=== PATIENT | female | born 1945 | race Caucasian/White ===

== ENCOUNTER 2019-11-06 11:10 | Outpatient (CLI) | payer MEDICARE, MEDICAID ==
--- NOTE | 2019-11-06 13:26 | CONSULTATION NOTE ---
Palliative Care Consultation - Referral Referring Provider: Cristiano ROBLES Time of Visit: [id number] [address]erral setting: [facility] [place] Referral Reason: Breast Cancer - Information Sources Records reviewed: Previous records reviewed History/Review of Systems obtained from: Patient, Family (daughter Ebonie) Exam limitations: No limitations - History of Present Illness Brief History of Present Illness: This is a 74-year-old woman who appears very fragile, and presents with a breast lump in her left breast. It does appear non-fixed, in the breast tissue, her breasts are quite small. It appears about the size of a walnut, is very tender to palpation, has broken through the skin, with roughened area through partially areola as well as small reddened nodules breaking through skin. No obvious lymphadenopathy noted today's visit. At this point in time it is not draining, though she has removed crusting during bathing. She reports intermittent sharp shooting, electrical actually in both breasts. More tenderness with movement and pressure. She reports this is been slowly worsening over the last several weeks to months, and now is more alarmed with it breaking through the skin. Patient reports an abnormal mammogram at [facility] about 4 years ago, presumed it was breast cancer, and has been working with diet to treat. Patient is vegetarian, appears frail in nature, has used supplements intermittently, but has been limited because of financial stressors. Her daughter was finally able to talk her into seeing Cristiano ROBLES for the first time, and she agreed to referral to Palliative Care for goals of care. Patient's history is complex in the context she has multiple allergies and chemical sensitivities. These appear mostly environmental, with exposure to detergents, scents, and reports she is lived in places that have not been healthy with black mold, off gassing, and exposure to toxins. These usually manifests in rashes, bronchial tightening, throat tightening, face flushing and fatigue. Patient's experience as far as previously, she did have a hysterectomy at 32 for bleeding and clotting, her ovaries are intact. She reports she has had a biopsy in the past where they removed a wedge "and put it back". This was quite painful and has left significant fear for future biopsies. We did discuss in the context currently she could have a needle biopsy and things were much better now than 30 years ago. She has avoided most medical care, though has had a gangrenous appendix removed in her 30s. She also describes a hospitalization for an allergic reaction that included lower extremity edema, rash, and swelling. She had self treated and ended up with metabolic issues that were life- threatening. Otherwise she has no other significant medical history and has avoided doctors. In meeting with patient and daughter, their goal is to understand better about moving forward and what that might entail. Patient very much has things to "live for", her goal would be to follow through with treatment, in fact she is asking about bilateral mastectomy. She is willing to hear what her options would be for treatment, with the goal to prolong quantity and improve quality of life. These will be made within the context of her healthcare beliefs, but she is willing to move forward with testing and staging. A cursory overview of this was given of what might be involved and the need for urgent referral to surgery and oncology was agreed upon. Medical/Surgical History - Past Medical History Respiratory: reports: Shortness of breath THROUGH OPERATOR: reports: Breast cancer (presumed presenting with mass) HEENT: reports: Chronic vision loss (this has been more acute in last few weeks) Psych: reports: Anxiety Musculoskeletal: reports: Fatigue Derm: reports: Other (reactions to multiple agents/detergents currently with rash LE) MRSA Hx?: No - Past Surgical History General: reports: Appendectomy (gangreous in 1950) /THROUGH OPERATOR: reports: Hysterectomy HEENT: reports: Tonsil/Adenoidectomy - Substance History Use: Uses substance without health or social issues: NONE Social History - Living Situation Living arrangement: At home Living Situation: Alone Support System: Patient describes a fairly isolated life, with financial stressors. Her daughter provides her transportation and support, she does defer to her quite frequently. [place] and she does have a granddaughter in [place] who is doing her shopping for her. She does have another daughter in [place], though they are currently estranged. Family History - Family History Family History: Mother: (Father at age 79, mother at 83), Father: , Sister: Alive and Well, Brother: Alive and Well, Other family: Alive and Well, Cancer Family History Comment/Other: Patient's daughter age 52, he did have a mammogram for curative intent last year. She does have a grandmother who of stomach cancer in her 50s, on paternal side. And a maternal grandmother had cancer in her 90s and . Her other daughter Ebonie who is with her, has had frequent biopsies but no positive for cancer at this time. She reports she is due for follow-up. Would recommend genetic counseling as part of patient's work-up. Medications/Allergies - Medications Home Medications: Ambulatory Orders Medication Instructions Recorded Confirmed Triamcinolone 0.5% Cream [Kenalog 1 applic TOP BID PRN 11/06/19 11/06/19 0.5% Cream] - Allergies Allergies/Adverse Reactions: Allergies Allergy/AdvReac Type Severity Reaction Status Date / Time Penicillins Allergy Rash Verified 11/06/19 13:46 chemical sensitivities AdvReac Rash Uncoded 11/06/19 13:46 Review of Systems - Constitutional Constitutional: reports: Fatigue (fluctuates; worsening lately), Weight stable. denies: Fever, Chills - Eyes Eyes: reports: Vision loss (worsening) - Cardiovascular Cardiovascular: reports: Exertional dyspnea, Decr. exercise tolerance. denies: Chest pain - Respiratory Respiratory: reports: SOB with exertion. denies: SOB at rest - Gastrointestinal Gastrointestinal: reports: Good appetite - Musculoskeletal Musculoskeletal: reports: Muscle weakness - Integumentary Integumentary: reports: Rash (recent with bathing; noted on calves), Dryness, Nail changes (thinned and brittle noted), Hair changes (has hair shaved close to minimize need for products/hair care) - Neurological Neurological: reports: General weakness - Psychiatric Psychiatric: reports: Anxiety - Hematologic/Lymphatic Hematologic/Lymphatic: denies: Recurrent infections - All Other Systems All Other Systems: reports: Reviewed and negative Physical Exam - Vital Signs Temperature: 36.9 C Pulse Rate: 76 Respiratory Rate: 18 O2 Saturation: 99 (ra @ rest) Blood Pressure: 125/75 - Physical Exam General Appearance: positive: Alert, Mild distress, Anxious Eyes Bilateral: positive: Other (pale conjuctivaie) ENT: positive: No signs of dehydration Neck: positive: Trachea midline Cardiovascular: positive: Regular rate & rhythm Respiratory: positive: No respiratory distress, Diminished in bases. negative: Wheezes, Rales, Rhonchi Abdomen: positive: Soft, Other (mild rounded distension) Skin: positive: Pallor, Rash (dry raised on shins; no pustules or erythema) Extremities: positive: No pedal edema Neurologic/Psychiatric: positive: Oriented x3, Mood/affect nml, Flat affect Palliative Care - POLST Patient has POLST: No Pain: Pain worsening, Location (left breast; fluctuates in intensity; does not want medication) Tiredness/Fatigue: Moderate (4-6) Drowsiness/Sedation: Mild (1-3) Nausea: None Anorexia: Mild (1-3) Dyspnea: Mild (1-3) Depression: Mild (1-3) Anxiety: Moderate (4-6) Feelings of wellbeing/Perceived Quality of Life: Fair, Acceptable Sleep: Sleeps well Constipation: No Performance Status: Patient admits to deconditioning, has had more fatigue and is more tired. Is able to manage her own ADLs, patient does not drive. - Palliative Care Discussion: Patient's understanding of her illness, currently she does believe she has breast cancer and I would concur. She has not sought treatment up to this point, as she has managed it on her own. She did recognize when it broke through the skin, this was no longer working and she needed to seek help. She is anxious about the spread, but this might look like as far as the future, and very much wants to live. This was in about choosing no treatment and focusing on comfort only. Her daughter is hopeful she has more time as well, and very supportive of patient choices, but encouraging her to move forward. Patient does present with palpable mass now eroding through the skin, has had worsening fatigue, some right upper quadrant tenderness, some firmness in her abdomen as well as some vision changes more acutely and changes in her health. We did discuss if her goals were to pursue treatment, surgery was acceptable, in fact she was talking about a bilateral mastectomy. This actually might be appropriate given her daughter also has a diagnosis of breast cancer. I did encourage for genetic testing, for Ebonie we did be helpful for her to know also. Patient is fearful and rightfully so of her chemical sensitivities, and interaction and pending tests coming. But she is willing to go through what she needs to recognizing this may be difficult for her. She very much does so have things to live for, and is hopeful this will end in a good outcome. Patient does have multiple financial stressors, [place], they are seeking appropriate housing for her both for her health issues and within her financial constraints We did discuss though advanced care planning, given patient's previous issues with reactions, and sensitivities would recommend she solidify durable power of health contracts attorney. She would want Ebonie her daughter [phone] to be her primary D POA. Form was given with instructions how to fill out. She also is quite clear she most likely would not want resuscitation, I did introduce the POLST form, as well as 5 wishes for communicating what would be most important to her and the case something were to occur. We agreed to revisit these issues after treatment plan in place and we had more information. Impression and Recommendations - Palliative Care Impression: This is a 74-year-old woman who presents most likely clinically with breast cancer with left breast mass. She does appear quite frail, has had little intervention from [facility], but is wanting to pursue treatment for this with goal for quantity as well as quality of life. Patient does present with high anxiety, quite pale, and frail. Palliative care to provide support for symptom management, coordination of care, and anticipatory guidance. Recommendations/Counseling Done: 1. Left breast tumor. Patient has had progressive growth, including now into the skin of left tumor mass. Is causing some discomfort, patient now willing to consider treatment options and is concerned about quantity and quality of life. Counseling provided regarding the continuum of care, surgery, staging, and options depending on outcome of this, including radiation/chemo/hormonal treatment. Discussed her concern regarding "spread", this would include needing to participate in scans, labs, most likely follow-up mammogram of other breast. Discussed will defer to surgeon and oncology, she is willing to meet with both, urgent referrals made. 2. Acute pain. Patient currently without discomfort, did offer to order some "rescue medication" if it got too bad, patient currently feels like it is manage able and declined any prescriptions. 3. Chemical sensitivities. This is been long-term challenging for patient, she currently has a rash from recent bathing. She has used steroid cream in the past, did order triamcinolone for flares and is covered by insurance. Prescription sent to [facility] in [place]. 4. Anxiety. Counseling provided to normalize her fears and concerns, she does have her daughter support, and feels like she can move forward with this. Reassured her of team support, and will continue to include both her and her daughter in their decisions and options. 5. Frailty. Did recommend patient consider improving protein intake, patient does do quite a bit of fasting. She is also been vegetarian. She would be willing to change diet to improve her underlying nutritional status. Counseling provided regarding this is something she can do right now, to focus on building herself up, particularly with pending surgery and treatment. Verbalized understanding. At some point would recommend dietary consult with [facility] dietitian. 6. Advanced care planning. Counseling provided regarding advanced care planning documents, defining goals of care, role of palliative care and support. Will see patient in 2 weeks after consults completed. Time Spent: 65 minutes with greater than 50% of this done in counseling regarding breast cancer, disease trajectory, treatment continue advanced care planning and anticipatory guidance. As well as coordination of care and urgent referrals to both surgery and oncology.
== END 2019-11-06 11:11 | disposition home or self-care (01) ==
LOC: PC 11:10
PROVIDERS: ATTEND Nurse Practitioner Adult Health
DX: Z51.5 Encounter for palliative care (principal); N63.20 Unspecified lump in the left breast, unspecified quadrant; N64.4 Mastodynia; F41.9 Anxiety disorder, unspecified; R54 Age-related physical debility; T50.915D Adverse effect of multiple unspecified drugs, medicaments and biological substances, subsequent encounter; Z78.9 Other specified health status
CPT/HCPCS: 99205

== ENCOUNTER 2019-12-09 12:46 | Outpatient (CLI) | payer MEDICARE, MEDICAID ==
[2019-12-09] MEDS ORDERED: GADOBUTROL 7.5 MMOL/7.5 ML VIAL ONE (13:10)
[2019-12-09] MEDS ORDERED: GADOBUTROL 7.5 MMOL/7.5 ML VIAL IVP ONE (15:40)
--- NOTE | 2019-12-14 12:27 | MRI Report ---
BREAST MRI OF BOTH BREASTS: 12/10/2019 CLINICAL: Left breast protruding mass. PROCEDURE: MR BREAST BILATERAL WITH CAD INDICATIONS: Left Breast Cancer TECHNIQUE: The patient was placed prone in a dedicated breast imaging coil. Precontrast axial STIR and 3D FLASH without fat saturation sequences were obtained. Both before and after bolus injection of contrast, sequential 1-minute axial 3D FLASH with fat saturation sequences for 3 time points, with subtraction images and maximum intensity projections (MIPs) generated. Delayed sagittal FLASH images with fat s aturation were also obtained. Computer-aided detection, including computer algorithm analysis of MRI image data for lesion detectio n and characterization, pharmacokinetic analysis, with further physician review for interpretation, w as performed. COMPARISON: [facility], MR, MR BREAST BILATERAL WITH CAD, 06/26/2019, 15:57. FINDINGS: Image quality: Excellent. There is moderate background parenchymal enhancement. Right breast: A 4 x 5 mm focus of enhancement is present within the right breast at 11:00 at the midd le depth (series 505/58 and series 701/66). This lesion demonstrates T2 hyperintensity. No other susp icious enhancement or mass lesions in the right breast. Left breast: There is a lobulated avidly enhancing mass within the upper-outer quadrant of the left b reast which measures 3.8 x 2.5 x 2.8 cm. Architectural distortion is present within this mass. This m ass extends to the skin surface. Miscellaneous: No axillary adenopathy. No intramammary adenopathy. Limited visualization of the heart , lungs, mediastinum, and upper abdomen are grossly unremarkable. IMPRESSION: KNOWN BIOPSY PROVEN MALIGNANCY 1. 4 x 5 mm focus of enhancement in the right breast which demonstrates T2 hyperintensity. Findings s uggest a small fibroadenoma. Second look ultrasound is recommended to further characterize this findi ng. 2. Avidly enhancing lobulated mass in the left breast with skin involvement and architectural distort ion consistent with the biopsy-proven neoplasm. 3. No findings to suggest multifocal or multicentric disease. Electronically Signed By: Justyna garcia/:12/10/2019 21:38:27 ACR BI-RADS Category 6: Known biopsy proven malignancy 3346F BI-RADS CATEGORY: (6) - 6 Unspecified - other recall n/a LATERALITY: (B)
== END 2019-12-09 12:47 | disposition home or self-care (01) ==
LOC: DI 12:46
PROVIDERS: ATTEND Surgery
DX: C50.112 Malignant neoplasm of central portion of left female breast (principal)
CPT/HCPCS: 77049; A9585

== ENCOUNTER 2020-01-11 08:28 | Day surgery (SDC) | payer MEDICARE, MEDICAID ==
[2020-01-11] MEDS ORDERED: PHENYLEPHRINE 10 MG/ML VIAL IV ONE (08:29)
[2020-01-11] MEDS ORDERED: ROCURONIUM 50 MG/5 ML VIAL IVP ONE (08:29)
[2020-01-11] MEDS ORDERED: ACETAMINOPHEN 1,000 MG/100 ML 100 ML IV ONE (08:29)
[2020-01-11] MEDS ORDERED: PROPOFOL 200 MG/20 ML VIAL IVP ONE (08:29)
[2020-01-11] MEDS ORDERED: LIDOCAINE-MPF 2% 5 ML VIAL IM ONE (08:29)
[2020-01-11] MEDS ORDERED: ROPIVACAINE 0.2% PF 20ML VIAL EP ONE (08:29)
[2020-01-11] MEDS ORDERED: fentaNYL 100 MCG/2 ML VIAL IVP ONE (08:29)
[2020-01-11] MEDS ORDERED: DEXAMETHASONE 4 MG/ML VIAL IVP ONE (08:29)
[2020-01-11] MEDS ORDERED: ONDANSETRON 4 MG/2 ML VIAL IVP ONE (08:29)
[2020-01-11] MEDS ORDERED: LACTATED RINGERS 1,000 ML IV ONE ×3 (08:56→16:00)
[2020-01-11] MEDS ORDERED: CEFAZOLIN SODIUM IN 0.9 % NACL 2 GM/100 ML BAG IV ONE (09:05)
--- NOTE | 2020-01-11 09:53 | ANESTHESIA ---
Pre-Anesthesia VS, & Labs - Diagnosis left breast cancer - Procedure bilateral mastectomy with left sentinel node biopsy Vital Signs: Temp Pulse Resp BP Pulse Ox 36.3 C L 56 L 18 132/69 H 99 01/11/20 08:49 01/11/20 08:49 01/11/20 08:49 01/11/20 08:49 01/11/20 08:49 Height 4 ft 11 in Weight (kg) 42.7 kg Body Mass Index 18.9 - NPO >8 hours - Is Patient ?: No Home Medications and Allergies Home Medications: Ambulatory Orders No Known Home Medications 12/31/19 No Known Home Medications 12/31/19 zinc, iodine, enzymes, estrogen balance, vit D3, seaweed Allergies/Adverse Reactions: Allergies Allergy/AdvReac Type Severity Reaction Status Date / Time Penicillins Allergy Rash Verified 01/11/20 09:15 procaine [From Novocain] Allergy Anaphylaxis Verified 01/11/20 09:15 chemical sensitivities AdvReac Rash Uncoded 01/11/20 09:15 Anes History & Medical History - Anesthetic History Anesthesia Complications: reports: No previous complications - Medical History Cardiovascular: reports: Murmur (benign) Pulmonary: reports: None Gastrointestinal: reports: None Urinary: reports: None Neuro: reports: None Musculoskeletal: reports: Fatigue Endocrine/Autoimmune: reports: None Blood Disorders: reports: None Skin: reports: None Smoking Status: Never smoker Psychosocial: reports: Other (PTSD) - Surgical History General: Appendectomy Eyes Ears Nose Throat (EENT): Tonsil/Adenoidectomy Gynecologic: Hysterectomy Exam General: Alert, Oriented x3, Cooperative, No acute distress Dental: Poor dentition Mouth Openin Fingerbreadth Neck Mobility: Normal Mallampati classification: I Thyromental Distance: 4-6 cm Respiratory: Lungs clear, Normal breath sounds, No respiratory distress, No accessory muscle use Cardiovascular: Regular rate, Normal S1, Normal S2, No murmurs Mental/Cognitive Status: Alert/Oriented X3, Normal for patient Plan Anesthesia Type: General, Other (halima. PECs block) Consent for Procedure(s) Verified and Reviewed: Yes Code Status: Attempt Resuscitation ASA classification: 2-Mild systemic disease Is this case an emergency?: No
[2020-01-11] MEDS ORDERED: BUPIVACAINE 0.5% PF 30 ML VIAL ONE (10:17)
[2020-01-11] MEDS ORDERED: LIDOCAINE 1%-EPI 1:100000 20 ML MDV ONE (10:17)
--- NOTE | 2020-01-11 11:46 | Nuclear Medicine Report ---
PROCEDURE: Lymph Node Scintigraphy INDICATIONS: LT BREAST CA RADIOPHARMACEUTICAL: 0.5-1.0 mCi Millipore filtered Tc-99m sulfur colloid. TECHNIQUE: The area around the nipple was prepped and draped in a sterile fashion. Tc-99m sulfur colloid was in jected intra-dermally in the outer edge of the areola in the left breast. Images were obtained subse quently. A body contour outline was obtained. FINDINGS: There is a lymph node(s) in the ipsilateral axilla. Possible intramammary lymph node due to the injec tion site (lateral edge of areola). IMPRESSION: Administration of radiotracer into the left breast periareolar region for intra-operativ e sentinel lymph node localization. A sentinel lymph node is visible in the left axilla. In addition , there is a possible intramammary lymph node. Reviewed by: Kyle Chun MD on 01/11/2020 11:45 AM PDT Approved by: Kyle Chun MD on 01/11/2020 11:45 AM PDT Station ID: [id number]
[2020-01-11] MEDS ORDERED: SUGAMMADEX 200 MG/2 ML VIAL IVP ONE (13:23)
--- NOTE | 2020-01-11 13:37 | OPERATIVE REPORT ---
Operative Report - General Procedure Date: 01/11/20 Planned Procedure: Bilateral mastectomy with left sentinel node biopsy Pre-Op Diagnosis: Locally advanced left breast cancer, Right breast mass Procedure Performed: Bilateral simple mastectomy and left sentinel node biposy Post Op Diagnosis: Same - Procedure Note Primary Surgeon: Rosaline Anesthesia Provider: ALEJANDRO Lamas Anesthesia Technique: General LMA, Regional block Pathology: 1. Right breast marked short stitch superior and long stitch lateral 2. Left breast marked short stitch superior long stitch lateral 3. Left axillary sentinel node. 10-second count greater than 2800 in a background of 6 in the axilla 0 in the room. Estimated Blood Loss (mL): 50 Drain/Tube Type: Nathan drain (119 [place] Nathan drain on each side in the inframammary pocket) Indications: Locally advanced left breast cancer. Right breast lesion seen on MRI Findings: The tumor was not fixed posteriorly to the chest wall. Grossly free margins. Complications: None apparent. - Other Other Information/Narrative: After obtaining informed consent, the patient is brought to the operating room and placed in the supine position on the operating table. Following successful induction of general anesthesia, the patient underwent bilateral pectoral blocks per anesthesia with ultrasound guidance. The bilateral chest, axilla, and neck were prepped and draped in the standard surgical fashion. A timeout was held per scope protocol. All elements of the surgical safety checklist were followed before, during, and after the procedure. We began on the right side by designing an elliptical incision to include the nipple areolar complex. It was the patient's wishes to be as flat as possible and to have no protrusion or extra skin. This incision was 13 cm from the nipple laterally, 8 cm medially, 6 cm superiorly, and 7 cm inferiorly, this incision was then created with a 10 blade scalpel and carried down through the skin and subcutaneous tissue. Using traction and countertraction, the breast tissue was liberated from the overlying dermis and skin and the underlying pectoralis muscle with a combination of sharp dissection and cautery. It was then removed in a medial to lateral fashion. The specimen was marked with a short stitch superior and long stitch lateral and passed from the table. The wound was then checked for hemostasis and irrigated with warm water. A 19 [place] Nathan drain was placed in the inferior pocket and brought out inferior medially. The skin incision was then closed in layers with Vicryl suture and clips were applied in the skin. The wound was then covered with a dry towel.We continued our procedure on the left side. Using a marking pen and ruler, an identical incision was fashioned on the left side to match the one on the right. This was also large enough to allow us to remove all of the tumor that appeared to be coming through the skin. This inci wesley was then created using a 10 blade scalpel. Once we got to the level of the axilla, the sentinel node was identified using the neoprobe. There was a single sentinel node with a 10-second count of greater than 2800 and a background count field of 6 and background in the room of 0. This single node was removed. The background was checked once again and found to be essentially less than 5. We then continued with the inferior incision. Using traction and countertraction, the breast tissue was liberated from the overlying dermis and skin and the underlying pectoralis muscle with a combination of sharp dissection and cautery. It was then removed in a medial to lateral fashion. The specimen was marked with a short stitch superior and long stitch lateral and passed from the table. The wound was then checked for hemostasis and irrigated with warm water. A 19 [place] Nathan drain was placed in the inferior pocket and brought out inferior medially. The skin incision was then closed in layers with Vicryl suture and clips were applied in the skin.All sponge, needle, and instrument counts were correct at the conclusion of the case. Dermabond was applied to both incisions over the ai. Each was dressed with fluffs and a 9 inch binder across the chest.Was allowed awaken from anesthesia without difficulty and taken to the postanesthesia care unit in good condition.
[2020-01-11] MEDS ORDERED: ACETAMINOPHEN 325 MG TABLET PO PRN (13:44)
[2020-01-11] MEDS ORDERED: IBUPROFEN 600 MG TABLET PO PRN (13:44)
[2020-01-11] MEDS ORDERED: ONDANSETRON 4 MG/2 ML VIAL IVP PRN ×2 (13:44→15:36)
[2020-01-11] MEDS ORDERED: oxyCODONE 5 MG TABLET PO PRN ×2 (13:44→15:35)
[2020-01-11] MEDS ORDERED: KETOROLAC 15 MG/ML VIAL ONE (14:21)
[2020-01-11] MEDS ORDERED: HYDROmorphone 0.5 MG/0.5 ML SYRINGE ONE (14:21)
[2020-01-11] MEDS ORDERED: SODIUM CHLORIDE FLUSH 0.9% 10 ML SYRINGE IVP PRN (15:31)
[2020-01-11] MEDS ORDERED: ACETAMINOPHEN 1,000 MG/100 ML 100 ML IV PRN (15:37)
[2020-01-11] MEDS: DEXTROSE 5%-0.9% NACL 1,000 ML IV SCH (17:34)
[2020-01-11] MEDS: SODIUM CHLORIDE FLUSH 0.9% 10 ML SYRINGE IVP SCH ×2 (17:34→23:35)
[2020-01-11] MEDS: KETOROLAC 15 MG/ML VIAL IVP SCH ×2 (17:34→23:34)
[2020-01-12] MEDS: KETOROLAC 15 MG/ML VIAL IVP SCH ×2 (05:39→11:50)
[2020-01-12] MEDS: DEXTROSE 5%-0.9% NACL 1,000 ML IV SCH (06:33)
[2020-01-12] MEDS: SODIUM CHLORIDE FLUSH 0.9% 10 ML SYRINGE IVP SCH (08:17)
[2020-01-12 12:09] VITALS: BP 125/53
--- NOTE | 2020-01-12 13:14 | PROVIDER PROGRESS NOTE ---
Subjective - General Procedure Date: 01/11/20 Post Op Days: 1 - Review of Systems Wound/Incisions: positive: Healing well Drain Output Description: serosanguinous General: positive: No symptoms HEENT: positive: No symptoms Pulmonary: positive: No symptoms Cardiovascular: positive: No symptoms Gastrointestinal: positive: No symptoms Genitourinary: positive: No symptoms Musculoskeletal: positive: No symptoms Skin: positive: No symptoms Objective - Patient Data Reviewed Vital Signs: Yes Vital Signs: Vital Signs x48h Temp Pulse Resp BP Pulse Ox 01/12/20 12:08 36.9 C 62 16 125/53 L 98 01/12/20 08:21 37.0 C 60 18 120/56 L 98 Weight: Weight 01/10/20 01/11/20 01/12/20 23:59 23:59 23:59 Weight (kg) 42.7 kg Intake & Output: Intake and Output Totals x24h 01/10/20 01/11/20 01/12/20 23:59 23:59 23:59 Intake Total 1300 973.75 Output Total 136 35 Balance 1164 938.75 - Current Medications Current Medications: Current Medications Generic Name Dose Route Start Last Admin Trade Name Freq PRN Reason Stop Dose Admin Dextrose/Sodium Chloride 1,000 mls @ 75 mls/hr 01/11/20 16:00 01/12/20 06:33 D5ns IV 75 mls/hr .[id number] GUILLAUME Administration Ketorolac Tromethamine 15 mg 01/11/20 18:00 01/12/20 11:50 Toradol Inj (15mg) IVP 01/16/20 17:59 15 mg Q6HR GUILLAUME Administration Ondansetron HCl 4 mg 01/11/20 13:44 01/12/20 05:47 Zofran Inj IVP 4 mg Q6HR PRN Administration Nausea / Vomiting Sodium Chloride 10 ml 01/11/20 17:00 01/12/20 08:17 Normal Saline Flush 0.9% IVP Not Given 0100,0900,1700 [facility] - Physical Exam Wound/Incisions: positive: Healing well General Appearance: positive: No acute distress Eyes Bilateral: positive: Normal inspection ENT: positive: ENT inspection nml Respiratory: positive: Breath sounds nml Cardiovascular: positive: Regular rate & rhythm Skin: positive: Other (Incisions are clean and dry with minimal bruising) Impression/Plan - Problem List Problem List: Locally advanced left breast cancer. Pain is well controlled. Comfortable with drains. Discharge to home. Follow uo with me in 1 week.
== END 2020-01-12 15:30 | disposition home or self-care (01) ==
LOC: SDS 08:28 → MS2 16:01 → SDS 01-12 15:30
PROVIDERS: ATTEND Surgery
PROC: 07B60ZX Excision of Left Axillary Lymphatic, Open Approach, Diagnostic (ICD-10-PCS; 2020-01-11)
PROC: 0HBV0ZZ Excision of Bilateral Breast, Open Approach (ICD-10-PCS; principal; 2020-01-11 10:45)
DX: C50.112 Malignant neoplasm of central portion of left female breast (principal); C77.3 Secondary and unspecified malignant neoplasm of axilla and upper limb lymph nodes; R92.8 Other abnormal and inconclusive findings on diagnostic imaging of breast; N64.4 Mastodynia; Z17.0 Estrogen receptor positive status [ER+]
CPT/HCPCS: 19303; 38500; 78195; J0131; J0690; J1170; J2795; J7120